=== PATIENT | female | born 1995 | race Two or more races ===

== ENCOUNTER 2016-10-17 09:31 | Emergency (ER) | payer OTHER ==
[~2016-10-17] VITALS: Ht 160 cm; Wt 43.2 kg
[2016-10-17 14:03] VITALS: BP 108/71
== END 2016-10-17 13:20 | disposition home or self-care (01) ==
LOC: ED 09:31
DX: R10.30 Lower abdominal pain, unspecified (principal); R30.9 Painful micturition, unspecified
CPT/HCPCS: J1885

== ENCOUNTER 2017-06-06 06:51 | Emergency (ER) | payer OTHER ==
[~2017-06-06] VITALS: Ht 162.6 cm; Wt 41.7 kg
[2017-06-06 07:09] VITALS: Ht 162.6 cm; Wt 41.7 kg
[2017-06-06 10:38] VITALS: BP 100/56
== END 2017-06-06 10:38 | disposition home or self-care (01) ==
LOC: ED 06:51
DX: R10.13 Epigastric pain (principal); R19.7 Diarrhea, unspecified; R11.10 Vomiting, unspecified
CPT/HCPCS: J0780; J1885

== ENCOUNTER 2017-06-11 01:57 | Observation (INO) | payer OTHER ==
[~2017-06-11] VITALS: Ht 162.6 cm; Wt 42.8 kg
[2017-06-11 02:30] VITALS: Ht 162.6 cm; Wt 42.8 kg
[2017-06-11 05:27] LABS: BASOPHIL % 0.2 % (0-2); PLATELET COUNT 141 x10^3mcL (130-400); RED CELL DISTRIBUTION WIDTH 12.8 % (11.5-14.5)
[2017-06-11 05:37] LABS: UA SPECIFIC GRAVITY 1.015 (1.005-1.035); microscopic required? YES; urine erythrocyte 1+ (NEGATIVE)
[2017-06-11 05:39] LABS: CHLORIDE SERUM 104 mmol/L (98-107); CREATININE SERUM 0.8 mg/dL (0.6-1.0); GFR1 > 60 mL/min; GLUCOSE SERUM 104 mg/dL (74-106); POTASSIUM SERUM 3.4 mmol/L (3.5-5.1); SODIUM SERUM 140 mmol/L (136-145)
[2017-06-11 05:53] LABS: ALBUMIN 3.5 g/dL (3.4-5.0); ALKALINE PHOSPHATASE 52 U/L (46-116); ALT/SGPT 42 U/L (14-59); AST/SGOT 26 U/L (15-37); BILIRUBIN TOTAL 0.3 mg/dL (0.20-1.00); TOTAL PROTEIN, SERUM 6.9 g/dL (6.4-8.2)
[2017-06-11 07:20] VITALS: BP 111/60
[2017-06-11 07:21] VITALS: BP 111/60
[2017-06-11 10:55] VITALS: BP 111/60
[2017-06-11 13:14] VITALS: BP 104/50
[2017-06-11 18:00] VITALS: BP 106/59
[2017-06-11 21:21] VITALS: BP 116/68
[2017-06-12 05:15] VITALS: BP 121/68
[2017-06-12 07:42] LABS: CALCIUM 7.9 mg/dL (8.5-10.1); CARBON DIOXIDE 25.4 mmol/L (21-32); CHLORIDE SERUM 104 mmol/L (98-107); CREATININE SERUM 0.7 mg/dL (0.6-1.0); GFR1 > 60 mL/min; GLUCOSE SERUM 93 mg/dL (74-106); MAGNESIUM 1.8 mg/dL (1.8-2.4); POTASSIUM SERUM 3.7 mmol/L (3.5-5.1); SODIUM SERUM 140 mmol/L (136-145)
[2017-06-12 10:00] VITALS: BP 112/68
[2017-06-12 10:15] VITALS: BP 112/68
[2017-06-12] MEDS ORDERED: ZOF4 PO (10:23)
[2017-06-12] MEDS ORDERED: ZITHROMAX Z-PA250 MG PO (10:25)
== END 2017-06-12 10:55 | disposition home or self-care (01) | DRG 249 ==
LOC: ED 01:57 → DU 05:57
PROVIDERS: Emergency Medicine; Internal Medicine Pulmonary Disease
DX: A08.4 Viral intestinal infection, unspecified (principal); E86.0 Dehydration; J20.9 Acute bronchitis, unspecified; E87.6 Hypokalemia
CPT/HCPCS: 82962; 87804; G0378; J0456; J2405; J2765; J7030; Q0162

== ENCOUNTER 2017-09-14 17:50 | Emergency (ER) | payer OTHER ==
[~2017-09-14] VITALS: Ht 162.6 cm; Wt 44.6 kg
[~2017-09-14 17:50] MED LIST: ZITHROMAX Z-PA250 MG PO; ZOF4 PO
[2017-09-14 18:21] VITALS: Ht 162.6 cm; Wt 44.6 kg
[2017-09-14 21:53] VITALS: BP 107/71
== END 2017-09-14 21:53 | disposition home or self-care (01) ==
LOC: ED 17:50
DX: R51 Headache (principal)
CPT/HCPCS: J0780; J1885

== ENCOUNTER 2017-09-22 16:05 | Emergency (ER) | payer OTHER ==
[~2017-09-22] VITALS: Ht 162.6 cm; Wt 44.0 kg
[2017-09-22 16:07] VITALS: Ht 162.6 cm; Wt 44.0 kg
[2017-09-22 16:41] LABS: microscopic required? NO
[2017-09-22 16:59] LABS: CALCIUM 9.3 mg/dL (8.5-10.1); CARBON DIOXIDE 22.1 mmol/L (21-32); CHLORIDE SERUM 99 mmol/L (98-107); CREATININE SERUM 0.8 mg/dL (0.6-1.0); GFR1 > 60 mL/min; GLUCOSE SERUM 114 mg/dL (74-106); POTASSIUM SERUM 3.2 mmol/L (3.5-5.1); SODIUM SERUM 133 mmol/L (136-145)
[2017-09-22 17:03] LABS: ALBUMIN 3.9 g/dL (3.4-5.0); ALKALINE PHOSPHATASE 60 U/L (46-116); ALT/SGPT 41 U/L (14-59); AST/SGOT 29 U/L (15-37); BILIRUBIN TOTAL 0.62 mg/dL (0.20-1.00); LIPASE 113 IU/L (73-393); TOTAL PROTEIN, SERUM 7.4 g/dL (6.4-8.2)
[2017-09-22 18:25] LABS: BASOPHIL % 0.1 % (0-2); PLATELET COUNT 243 x10^3mcL (130-400); RED CELL DISTRIBUTION WIDTH 12.1 % (11.5-14.5)
[2017-09-22 18:44] LABS: urine erythrocyte NEGATIVE (NEGATIVE)
[2017-09-22 20:08] VITALS: BP 109/65
== END 2017-09-22 20:08 | disposition home or self-care (01) ==
LOC: ED 16:05
PROVIDERS: Emergency Medicine
DX: R11.2 Nausea with vomiting, unspecified (principal); R10.9 Unspecified abdominal pain; F41.9 Anxiety disorder, unspecified; R19.7 Diarrhea, unspecified
CPT/HCPCS: J1200; J2270; J2405; J8597

== ENCOUNTER 2017-09-24 06:02 | Emergency (ER) | payer OTHER ==
[2017-09-24 07:07] LABS: BASOPHIL % 0.2 % (0-2); PLATELET COUNT 213 x10^3mcL (130-400); RED CELL DISTRIBUTION WIDTH 12.3 % (11.5-14.5)
[2017-09-24 07:26] LABS: UA SPECIFIC GRAVITY 1.015 (1.005-1.035); microscopic required? YES; urine erythrocyte 1+ (NEGATIVE)
[2017-09-24 07:33] LABS: ALBUMIN 3.8 g/dL (3.4-5.0); ALKALINE PHOSPHATASE 55 U/L (46-116); ALT/SGPT 38 U/L (14-59); AMYLASE 53 U/L (25-115); CHLORIDE SERUM 101 mmol/L (98-107); CREATININE SERUM 0.8 mg/dL (0.6-1.0); GFR1 > 60 mL/min; GLUCOSE SERUM 117 mg/dL (74-106); LIPASE 150 IU/L (73-393); POTASSIUM SERUM 3.3 mmol/L (3.5-5.1); SODIUM SERUM 137 mmol/L (136-145); TOTAL PROTEIN, SERUM 7.3 g/dL (6.4-8.2)
[2017-09-24 07:36] LABS: AMPHETAMINE QUAL UR NONE DETECTED (NEG <=1000)
[2017-09-24 08:01] LABS: CARBON DIOXIDE 21.8 mmol/L (21-32)
[2017-09-24 08:02] LABS: AST/SGOT 25 U/L (15-37); BILIRUBIN TOTAL 0.3 mg/dL (0.20-1.00)
[2017-09-24 12:34] VITALS: BP 106/79
== END 2017-09-24 12:34 | disposition home or self-care (01) ==
LOC: ED 06:02
PROVIDERS: Emergency Medicine
DX: E87.6 Hypokalemia (principal); K59.00 Constipation, unspecified; K56.7 Ileus, unspecified
CPT/HCPCS: J1885; J2405; J3480; J3490; J7030; J7040; Q9967

== ENCOUNTER 2018-01-14 12:31 | Emergency (ER) | payer OTHER ==
[~2018-01-14] VITALS: Ht 160 cm; Wt 43.3 kg
[2018-01-14 12:47] VITALS: Ht 160 cm; Wt 43.3 kg
[2018-01-14 15:40] VITALS: BP 110/65
== END 2018-01-14 15:40 | disposition home or self-care (01) ==
LOC: ED 12:31
DX: J06.9 Acute upper respiratory infection, unspecified (principal); H66.91 Otitis media, unspecified, right ear

== ENCOUNTER 2019-03-08 22:35 | Emergency (ER) | payer OTHER ==
[~2019-03-08] VITALS: Ht 157.5 cm; Wt 42.6 kg
[2019-03-08 22:38] VITALS: Ht 157.5 cm; Wt 42.6 kg
[2019-03-09 00:45] LABS: BASOPHIL % 0.4 % (0-2); PLATELET COUNT 217 x10^3mcL (130-400); RED CELL DISTRIBUTION WIDTH 12.3 % (11.5-14.5)
[2019-03-09 00:55] LABS: CALCIUM 8.9 mg/dL (8.5-10.1); CARBON DIOXIDE 27.6 mmol/L (21-32); CHLORIDE SERUM 101 mmol/L (98-107); CREATININE SERUM 0.7 mg/dL (0.6-1.0); GFR1 > 60 mL/min; GLUCOSE SERUM 132 mg/dL (74-106); POTASSIUM SERUM 3.8 mmol/L (3.5-5.1); SODIUM SERUM 138 mmol/L (136-145)
[2019-03-09 01:00] LABS: ALBUMIN 4.3 g/dL (3.4-5.0); ALKALINE PHOSPHATASE 66 U/L (46-116); ALT/SGPT 19 U/L (14-59); AST/SGOT 16 U/L (15-37); BILIRUBIN TOTAL 0.5 mg/dL (0.20-1.00); LIPASE 110 IU/L (73-393); TOTAL PROTEIN, SERUM 7.8 g/dL (6.4-8.2)
[2019-03-09 02:25] VITALS: BP 95/53
== END 2019-03-09 02:25 | disposition home or self-care (01) ==
LOC: ED 22:35
PROVIDERS: Emergency Medicine
DX: K29.70 Gastritis, unspecified, without bleeding (principal)
CPT/HCPCS: J2405; J7030